=== PATIENT | female | born 1980 | race Caucasian/White ===

== ENCOUNTER 2017-05-05 05:22 | Day surgery (SDC) | payer OTHER ==
[~2017-05-05] VITALS: Ht 160 cm; Wt 81.0 kg
--- NOTE | ~2017-05-05 | O ---
[facility] [place] [address] OPERATIVE REPORT Name: CHING SABA Room #: 150-1 [facility]#: [id number] Admission: 05/05/17 Attend Phys: Abel Richards MD, F Discharge: Date of : 78 Report #: [id number] THIS REPORT FOR: //name// CC: Amaury Richards DATE OF SERVICE: 05/05/2017 SURGEON: Abel Richards MD CARDING SUPERVISOR: Namrata Rizzo NP PREOPERATIVE DIAGNOSES: 1. Symptomatic cholelithiasis. 2. Ulcerative colitis. 3. History of sleeve gastrectomy. POSTOPERATIVE DIAGNOSES: 1. Symptomatic cholelithiasis. 2. Gallbladder cholesterolosis 3. Ulcerative colitis. 4. History of sleeve gastrectomy. PROCEDURE: Robotic cholecystectomy. ANESTHESIA: General endotracheal anesthesia and local anesthetic. ESTIMATED BLOOD LOSS: 10 mL. SPECIMEN: Gallbladder. COMPLICATIONS: None appreciated. INDICATIONS FOR PROCEDURE: This 36-year-old female patient underwent a laparoscopic sleeve gastrectomy on 07/19/2016, and has done extremely well with weight loss, having lost nearly 120 pounds. She has had difficulty with postprandial nausea, vomiting, and upper abdominal pain, worse with fatty foods and dairy products. She underwent a CT of the abdomen and pelvis, which revealed gallstones and sludge. The patient presents now for a laparoscopic cholecystectomy. OPERATIVE FINDINGS: The gallbladder did not appear to be acutely inflamed. The liver, small-bowel, and colon in the surrounding area appeared otherwise normal. Sleeve gastrectomy changes were noted. The critical view consisting of cystic artery, cystic duct and lower edge of the gallbladder forming a window through [facility] [address] [place] [address] OPERATIVE REPORT Name: CHING SABA Room #: 150-1 [facility].#: [id number] Admission: 05/05/17 Attend Phys: Abel Richards MD, F Discharge: Date of : 78 Report #: [id number] which the liver was visible was seen prior to clipping both the cystic artery and cystic duct. Two clips remained on the cystic duct stump; one clip remained on the cystic artery stump. After removal of the gallbladder from the liver bed, it was open on the backtable. Nonpigmented stones and thick bile were seen within the gallbladder as well as cholesterolosis. Intraabdominally, the liver bed was made hemostatic with electrocautery. No other significant intraabdominal pathology was identified. There was no evidence for iatrogenic injury. At the conclusion of the operation, the sponge, needle, and instrument counts were correct. DESCRIPTION OF PROCEDURE IN DETAIL: After the benefits and risks of the procedure were explained to the patient, which include, but are not limited to risks of bleeding, infection, postoperative pain, and postoperative expectations, informed consent was obtained. The patient was identified in the preoperative holding area. She was given IV antibiotics as documented in the chart in line with the SCIP metrics. The patient was then taken to the operating room and she was placed in the supine position. SCDs were placed on the patient's bilateral lower extremities and pneumatic compression was initiated. The patient was then given IV sedation and she was intubated without incident. The bed was rotated 180 degrees with the patient's feet by anesthesia. The patient's abdomen was then prepped and draped in the standard sterile fashion. A time-out was performed to identify the correct patient and procedure. Local anesthetic was infiltrated into the skin and subcutaneous tissue in the left mid abdomen where an 8-mm transverse incision was made. The 5-mm Visiport was placed intraperitoneally with a 0-degree angled laparoscope. Pneumoperitoneum was then achieved with insufflation of carbon dioxide to 15 mmHg. A 30-degree angled laparoscope was then inserted. An infraumbilical 11-mm and right lower quadrant 8-mm ports were then placed under direct visualization after local anesthetic was infiltrated into the skin and subcutaneous tissue and appropriately sized incisions were made. The 5-mm port was then upsized to an 8-mm port. The patient was then placed in reverse Trendelenburg position, slightly rotated to her left. The robot was then brought into dock to the ports. After docking the robot to each of the ports, the 30-degree angled laparoscope was inserted angled down. The hook was placed in the first arm and prograspers were placed in the 2nd and 3rd arms under direct visualization. I then broke scrub to perform the dissection on the robotic console. The dome of the gallbladder was retracted in a cephalad direction. The gallbladder peritoneum was then scored medially and laterally with cautery using the hook. Dissection was carried out around the cystic artery and cystic duct to identify both structures as the only two structures entering the gallbladder. The critical view of safety was identified. The cystic duct was triply clipped and the cystic artery was doubly clipped and sharply divided. The gallbladder [facility] [address] [place] [address] OPERATIVE REPORT Name: CHING SABA Room #: 150-1 [facility]#: [id number] Admission: 05/05/17 Attend Phys: Abel Richards MD, F Discharge: Date of : 78 Report #: [id number] was then dissected out of the liver bed with electrocautery. After fully detaching the gallbladder from the liver bed, bleeding points were made hemostatic with electrocautery. The gallbladder was then fully detached and placed in the right upper quadrant of the abdomen for retrieval. I then rescrubbed to retrieve the gallbladder. A 5-mm 30-degree angled laparoscope was inserted in the right mid abdominal port and the gallbladder was placed in an Endopouch, then removed through the 11-mm port site. An #0 PDS suture was used to close the port site fascial opening under direct visualization. The suture was tagged and the port was replaced. The liver bed was then examined for hemostasis. After ensuring final hemostasis and that the sponge, needle, and instrument counts were correct as well as ensuring no iatrogenic injury, the 11-mm port site fascial suture was tied under direct visualization to ensure no incorporation of intraabdominal content. The abdominal cavity was then desufflated and the ports were removed. Interrupted subcuticular 4-0 Monocryl sutures and Dermabond were used to close the skin incisions. The patient tolerated the procedure well. She was awakened, extubated, and taken to recovery room in stable condition with no apparent intraoperative complications. <ELECTRONICALLY SIGNED> By: Abel Richards MD, FACS 05/06/17 1124 [id number] 1701 Abel Richards MD, FACS /nt
--- NOTE | ~2017-05-05 | S ---
[facility] [place] [address] SURGICAL PATH RPT PROCEDURE Name: CHING SABA Room #: DEP [facility]..#: [id number] Admission: 05/05/17 Date of : 78 Discharge: 05/05/17 Report #: [id number] Path Case #: [id number] PATHOLOGY REPORT COLLECTION DATE: 05/05/2017 RECEIVED DATE: 05/05/2017 SUBMITTING PHYS: Dr. Abel Richards OTHER PHYS: Dr. Nithin Hamilton SPECIMEN(S) RECEIVED: A.Gallbladder * * * * * * * * * * * * FINAL DIAGNOSIS: Gallbladder, cholecystectomy: - Mild chronic cholecystitis. - Cholelithiasis. - Cholesterolosis. (IUV:mgr; 05/08/2017) PATHOLOGIST: Irasema Rivera M.D. REPORT ELECTRONICALLY SIGNED BY: Irasema Rivera M.D. DATE/TIME: 05/08/2017 16:36 * * * * * * * * * * * * GROSS PATHOLOGY: Received in formalin labeled "Yarelis Saba, gallbladder," is a 6.5 x 2.7 x 1.2 cm, previously opened gallbladder with smooth, shiny, dark graygreen serosal surfaces. The gallbladder is opened to show a dark greenyellow, velvety, bile-stained mucosa with multiple circular raised streaks extending throughout and an average wall thickness of 0.2 cm. Calculi are present and no masses are noted grossly. Machine Setup Operator sections from the body and fundus are submitted along with the proximal margin in cassette A1. (SNA; 05/05/2017) CLINICAL HISTORY: Symptomatic cholelithiasis INITIAL CPT CODE(S): A; 86645 Professional services performed by [facility] at [facility] [address] , [place] [address] [facility] [address] [place] [address] SURGICAL PATH RPT PROCEDURE Name: CHING SABA Room #: DEP [facility] [place]#: [id number] Admission: 05/05/17 Date of : 78 Discharge: 05/05/17 Report #: [id number] Path Case #: [id number] Technical services performed by [facility] at [address] [place] [address], [place] [address]. [place] [address] PHONE: [phone] DIRECTOR: Irineo Aly M.D. * * * END OF REPORT * * *
[~2017-05-05 05:22] MED LIST: ASACOL HD800 MG PO; BENTYL 10 MG CA10 M1 PO; BIOTIN5 M1 PO; BIOTIN5000 MCG PO; CLARITIN10 MG PO; COZAAR 50 MG TA50 M2 PO; COZAAR100 MG PO; FISH OIL PO; FLONASE 0.05%50 MCG NASAL; FLOXIN OTI0.3 %/5 M1 OT; HYDROCODON-ACE1 EAC7 PO; HYDROCODONE-AP1 EAC6 PO; LEVAQUIN 500 M500 M2 PO; LEVAQUIN 500 M500 MG PO; LORTAB 10 MG-3473 ML PO; LOSARTAN POTAS100 MG PO; LOSARTAN POTASS50 MG PO; LUNESTA2 MG PO; MELATONIN5 M1 PO; MULTI VITAMIN1 EACH PO; MULTIVITAMINS PO; NORCO 5-325 TA1 EACH PO; NORVASC5 MG PO; NYAMYC15 GM TOP; ONDANSETRON HCL4 M2 PO; PHENERGAN 25 MG25 MG PO; PHENERGAN12.5 M2 RECTAL; PREDNISONE 10 M10 MG PO; PREDNISONE 20 M20 M1 PO; REMICADE 1100 MG/VIA IV; SUDAFED 12 HOU120 MG PO; TRAZODONE HCL50 MG PO; VENTOLIN HFA 1818 GM INH; VITAMIN D35000 UNI1 PO; VYVANSE50 MG PO; ZOFRAN ODT4 MG DISSOLVE; ZOFRAN ODT4 MG PO; ZOFRAN4 MG PO; ZPAK PO; ZYRTEC10 M5 PO; ZYRTEC10 MG PO
[2017-05-05 07:10] VITALS: BP 126/76
[2017-05-05] MEDS ORDERED: HYDROCODONE-AP1 EAC6 PO (09:36)
[2017-05-05] MEDS ORDERED: MEDI-LAXX TABL1 EACH PO (09:36)
[2017-05-05 09:50] VITALS: BP 126/76
== END 2017-05-05 11:10 ==
LOC: OR 05:22 → TBA 05:22 → OR 09:43
DX: K80.80 Other cholelithiasis without obstruction (principal); K51.80 Other ulcerative colitis without complications; F17.210 Nicotine dependence, cigarettes, uncomplicated; Z90.3 Acquired absence of stomach [part of]
CPT/HCPCS: 49000; 50010; 50101; 50249; 50411; 50555; 50558; 51975; 52265; 54022; 54118; 56525; 56526; 56632; 56641; 62110; 62900; 64029; 70005